=== PATIENT | male | born 1985 | race Caucasian/White ===

== ENCOUNTER 2018-11-17 07:27 | Emergency (ER) | payer OTHER ==
[~2018-11-17] VITALS: Ht 182.9 cm; Wt 54.4 kg
[2018-11-17 07:27] VITALS: BP 139/98
[~2018-11-17 07:27] MED LIST: NOHOMEMEDICATIONS; NORCO 5-325 TA1 EACH PO; ZOFRAN ODT4 MG PO
== END 2018-11-17 08:00 | disposition home or self-care (01) ==
LOC: ER 07:27
DX: K08.89 Other specified disorders of teeth and supporting structures (principal); R51 Headache; Z88.0 Allergy status to penicillin; Z88.1 Allergy status to other antibiotic agents; Z88.8 Allergy status to other drugs, medicaments and biological substances